=== PATIENT | female | born 1990 | race Caucasian/White ===

== ENCOUNTER 2016-08-15 13:01 | Inpatient (IN) | payer BC ==
[2016-08-15 16:21] LABS: CHLORIDE,CL 107 mmol/L (98-110); SODIUM,NA 136 mmol/L (136-146)
[2016-08-15] MEDS ORDERED: Water For Irrigation,Sterile 1,000 ML Container IRR PRN (17:04)
[2016-08-15] MEDS ORDERED: Sodium Chloride 0.9% 2.5 ML Syringe FLUSH PRN (17:04)
[2016-08-15] MEDS ORDERED: Carboprost Tromethamine 250 MCG/1 ML Amp IM PRN (17:04)
[2016-08-15] MEDS ORDERED: Sodium Chloride 0.9% 10 ML Syringe FLUSH PRN (17:04)
[2016-08-15] MEDS ORDERED: Methylergonovine 0.2 MG/1 ML Amp IM PRN (17:04)
[2016-08-15] MEDS ORDERED: Lidocaine 1% 50 ML MDV INJECT PRN (17:04)
[2016-08-15] MEDS ORDERED: Butorphanol 1 MG/ML SDV IVPUSH PRN (17:04)
[2016-08-15] MEDS ORDERED: Misoprostol 200 MCG Tab PO PRN (17:04)
[2016-08-15] MEDS ORDERED: Nalbuphine 10 MG/1 ML Vial IVPUSH PRN (17:04)
--- NOTE | 2016-08-15 17:08 | US ---
EXAMINATION: Transabdominal obstetric ultrasound HISTORY: Check amniotic fluid COMPARISON: None TECHNIQUE: Grayscale, color Doppler, and spectral Doppler images obtained transabdominally. FINDINGS: There is a single live intrauterine in a cephalic position. The placenta is ante rior. The amniotic fluid next is normal at 10.5 cm. The single deepest pocket measures approximately 3 cm. IMPRESSION: Single live intrauterine in a cephalic position.
[2016-08-15] MEDS ORDERED: Lactated Ringers 1,000 ML IV SCH (17:15)
[2016-08-15] MEDS ORDERED: Oxytocin/Lactated Ringers 30 UNIT/500 ML BAG IV SCH ×2 (17:15→18:30)
[2016-08-15] MEDS ORDERED: Magnesium Sulfate/Water 4 GM in Premix Bag 1 BAG IV ONE (18:22)
[2016-08-15] MEDS ORDERED: Calcium Gluconate 10% 1 GM/10 ML SDV IV PRN (18:22)
[2016-08-15] MEDS ORDERED: Labetalol 100 MG/20 ML MDV IVPUSH PRN (18:24)
[2016-08-15] MEDS ORDERED: Misoprostol 25 MCG (1/4 of 100 MCG) Tab VAG SCH (18:30)
[2016-08-15] MEDS ORDERED: Terbutaline 1 MG/ML SDV SUBCUT PRN (18:30)
[2016-08-15] MEDS: Lactated Ringers 1,000 ML IV SCH (19:40)
[2016-08-15] MEDS: Magnesium Sulfate/Water 40 GM/1,000 ML BAG IV SCH (20:06)
[2016-08-16] MEDS: Misoprostol 25 MCG (1/4 of 100 MCG) Tab VAG PRN ×2 (00:34→04:51)
[2016-08-16] MEDS ORDERED: Acetaminophen 325 MG Tab PO ONE (05:37)
[2016-08-16] MEDS: Acetaminophen 500 MG Tab PO PRN ×2 (12:21→17:53)
[2016-08-16] MEDS ORDERED: Ampicillin/Sulbactam Na 3 GM in Sodium Chloride 0.9% 100 ML IV ONE ×2 (15:30→15:45)
[2016-08-16] MEDS: Magnesium Sulfate/Water 40 GM/1,000 ML BAG IV SCH (16:33)
[2016-08-16] MEDS ORDERED: oxyCODONE 5 MG Tab PO ONE (17:50)
--- NOTE | 2016-08-16 18:36 | PCM.PREANE ---
Preanesthetic Assessment - Anesthesia/Transfusion/Family Hx Anesthesia History: No Prior Anesthesia Transfusion History: No Prior Transfusion(s) - Physical Assessment Height: 1.57 m Weight: 83.915 kg - Lab Values: Laboratory Last Values WBC 9.93 K/uL (4.0-11.0) 08/15/16 17:58 RBC 4.42 M/uL (4.30-5.90) 08/15/16 17:58 Hgb 13.5 g/dL (12.0-16.0) 08/15/16 17:58 Hct 40.7 % (36.0-46.0) 08/15/16 17:58 MCV 92.1 fL (80.0-98.0) 08/15/16 17:58 MCH 30.5 pg (27.0-32.0) 08/15/16 17:58 MCHC 33.2 g/dL (31.0-37.0) 08/15/16 17:58 RDW Std Deviation 45.5 fl (28.0-62.0) 08/15/16 17:58 RDW Coeff of Reed 14 % (11.0-15.0) 08/15/16 17:58 Plt Count 151 K/uL (150-400) 08/15/16 17:58 MPV 12.60 fL (7.40-12.00) H 08/15/16 17:58 Neut % (Auto) 72.0 % (48.0-80.0) 08/15/16 15:51 Lymph % (Auto) 20.3 % (16.0-40.0) 08/15/16 15:51 [place] % (Auto) 7.1 % (0.0-15.0) 08/15/16 15:51 Eos % (Auto) 0.5 % (0.0-7.0) 08/15/16 15:51 Baso % (Auto) 0.1 % (0.0-1.5) 08/15/16 15:51 Neut # (Auto) 6.2 K/uL (1.4-5.7) H 08/15/16 15:51 Lymph # (Auto) 1.7 K/uL (0.6-2.4) 08/15/16 15:51 [place] # (Auto) 0.6 K/uL (0.0-0.8) 08/15/16 15:51 Eos # (Auto) 0.0 K/uL (0.0-0.7) 08/15/16 15:51 Baso # (Auto) 0.0 K/uL (0.0-0.1) 08/15/16 15:51 Nucleated RBC % 0.0 /100WBC 08/15/16 17:58 Nucleated RBCs # 0 K/uL 08/15/16 17:58 Sodium 136 mmol/L (136-146) 08/15/16 15:51 Potassium 4.1 mmol/L (3.5-5.1) 08/15/16 15:51 Chloride 107 mmol/L (98-110) 08/15/16 15:51 Carbon Dioxide 19 mmol/L (21-31) L 08/15/16 15:51 BUN 9 mg/dL (6.0-23.0) 08/15/16 15:51 Creatinine 0.6 mg/dL (0.6-1.5) 08/15/16 15:51 Est Cr Clr Drug Dosing 113.36 mL/min 08/15/16 15:51 Estimated GFR (MDRD) > 60.0 ml/min 08/15/16 15:51 Glucose 74 mg/dL (60-110) 08/15/16 15:51 Uric Acid 3.8 mg/dL (2.1-6.2) 08/15/16 15:51 Calcium 9.3 mg/dL (8.8-10.8) 08/15/16 15:51 Magnesium 4.6 mEq/L (1.5-2.3) H 08/16/16 12:18 Total Bilirubin 0.2 mg/dL (0.1-1.5) 08/15/16 15:51 AST 15 IU/L (5-40) 08/15/16 15:51 ALT 9 IU/L (8-54) 08/15/16 15:51 Alkaline Phosphatase 201 (40-150) H 08/15/16 15:51 Total Protein 6.2 g/dL (6.0-8.0) 08/15/16 15:51 Albumin 3.4 g/dL (3.5-5.0) L 08/15/16 15:51 Globulin 2.8 g/dL (2.0-3.5) 08/15/16 15:51 Albumin/Globulin Ratio 1.2 (1.3-2.8) L 08/15/16 15:51 Urine Color YELLOW 08/15/16 13:45 Urine Appearance SLT CLOUDY 08/15/16 13:45 Urine pH 7.5 (5.0-8.0) 08/15/16 13:45 Ur Specific [place] 1.015 (1.001-1.035) 08/15/16 13:45 Urine Protein TRACE mg/dL (NEGATIVE) 08/15/16 13:45 Urine Glucose (UA) NEGATIVE mg/dL (NEGATIVE) 08/15/16 13:45 Urine Ketones NEGATIVE mg/dL (NEGATIVE) 08/15/16 13:45 Urine Occult Blood NEGATIVE (NEGATIVE) 08/15/16 13:45 Urine Nitrite NEGATIVE (NEGATIVE) 08/15/16 13:45 Urine Bilirubin NEGATIVE (NEGATIVE) 08/15/16 13:45 Urine Urobilinogen 0.2 EU/dL (<2.0) 08/15/16 13:45 Ur Leukocyte Esterase NEGATIVE (NEGATIVE) 08/15/16 13:45 Membrane Rupture POSITIVE 08/15/16 16:10 Blood Type O POSITIVE 08/15/16 17:58 Antibody Screen NEGATIVE 08/15/16 17:58 - Allergies Allergies/Adverse Reactions: Allergies Allergy/AdvReac Type Severity Reaction Status Date / Time No Known Allergies Allergy Verified 08/15/16 13:23 PreAnesthesia Questionnaire - Past Health History Medical/Surgical History: Denies Medical/Surgical History - CURRENT (IN HOUSE) MEDS Current Meds: Current Medications Acetaminophen (Tylenol Extra Strength) 1,000 mg PO Q4H PRN PRN Reason: Pain Last Admin: 08/16/16 17:53 Dose: 1,000 mg Butorphanol Tartrate (Stadol) 1 mg IVPUSH ASDIRECTED PRN PRN Reason: Pain Last Admin: 08/16/16 15:30 Dose: 1 mg Calcium Gluconate (Calcium Gluconate) 1 gm IV ASDIRECTED PRN PRN Reason: respiratory distress Carboprost Tromethamine (Hemabate Ds) 250 mcg IM ASDIRECTED PRN PRN Reason: Post Hemorrhage Magnesium Sulfate (Magnesium Sulfate 40 Gm In Water 1000 Ml) 40 gm in 1,000 mls @ 50 mls/hr IV ASDIRECTED ALBA; 2 GM/HR PRN Reason: Protocol Last Admin: 08/16/16 16:33 Dose: 2 gm/hr, 50 mls/hr Oxytocin/Lactated Ringer's (Pitocin In Lr 30 Units/500 Ml) 30 unit in 500 mls @ 2 mls/hr IV TITRATE ALBA; 2 MUNITS/MIN PRN Reason: Protocol Last Titration: 08/16/16 17:10 Dose: 10 munits/min, 10 mls/hr Ampicillin Sodium/Sulbactam (Sodium 1.5 gm/ Sodium Chloride) 50 mls @ 150 mls/ hr IV Q6H ALBA Labetalol HCl (Normodyne) 20 mg IVPUSH Q10M PRN; Protocol PRN Reason: Hypertension Lidocaine HCl (Xylocaine 1%) 50 ml INJECT .ONCE PRN PRN Reason: Laceration repair Methylergonovine Maleate (Methergine) 0.2 mg IM ASDIRECTED PRN PRN Reason: Post Hemorrhage Misoprostol (Cytotec) 200 mcg PO .ONCE PRN PRN Reason: Post Hemorrhage Misoprostol (Cytotec) 25 mcg VAG .ONCE ALBA Last Admin: 08/15/16 20:24 Dose: 25 mcg Misoprostol (Cytotec) 25 mcg VAG Q4H PRN PRN Reason: Cervical Ripening Stop: 08/16/16 22:31 Last Admin: 08/16/16 04:51 Dose: 25 mcg Nalbuphine HCl (Nubain) 10 mg IVPUSH ASDIRECTED PRN PRN Reason: Pain (severe 7-10) Stop: 08/17/16 17:05 Sodium Chloride (Saline Flush) 10 ml FLUSH ASDIRECTED PRN PRN Reason: Keep Vein Open Sodium Chloride (Saline Flush) 2.5 ml FLUSH ASDIRECTED PRN PRN Reason: Keep Vein Open Sterile Water (Sterile Water For Irrigation) 1,000 ml IRR ASDIRECTED PRN PRN Reason: delivery Terbutaline Sulfate (Brethine) 0.25 mg SUBCUT ASDIRECTED PRN PRN Reason: Tacysystole Discontinued Medications Acetaminophen (Tylenol) 650 mg PO NOW ONE Stop: 08/16/16 05:38 Last Admin: 08/16/16 06:10 Dose: 650 mg Lactated Ringer's (Ringers, Lactated) 1,000 mls @ 150 mls/hr IV ASDIRECTED ALBA Oxytocin/Lactated Ringer's (Pitocin In Lr 30 Units/500 Ml) 30 unit in 500 mls @ 250 mls/hr IV TITRATE ALBA; 250 MUNITS/MIN PRN Reason: Protocol Stop: 08/15/16 19:14 Magnesium Sulfate 4 gm/ Premix 100 mls @ 300 mls/hr IV .BOLUS ONE Stop: 08/15/16 18:41 Last Admin: 08/15/16 19:46 Dose: 300 mls/hr Ampicillin Sodium/Sulbactam (Sodium 1.5 gm/ Sodium Chloride) 50 mls @ 200 mls/ hr IV Q6H ALBA Ampicillin Sodium/Sulbactam (Sodium 3 gm/ Sodium Chloride) 100 mls @ 200 mls/ hr IV ONETIME ONE Stop: 08/16/16 15:59 Ampicillin Sodium/Sulbactam (Sodium 3 gm/ Sodium Chloride) 100 mls @ 200 mls/ hr IV ONETIME ONE Stop: 08/16/16 16:14 Last Admin: 08/16/16 16:34 Dose: 200 mls/hr Oxycodone HCl (Oxycodone) 5 mg PO ONETIME ONE Stop: 08/16/16 17:51 Last Admin: 08/16/16 17:54 Dose: 5 mg - Free Text/Narrative Note: Labor Analgesia/Epidural Procedure start date: time: Attending provider aware Chart reviewed Permit signed Labs reviewed VS/ FHR reviewed Pt identified/ID band Pt assessed Risks/Benefits discussed and accepted Monitors in place (BP, HR, SPO2) Patient, Site, Procedure Verification, Pause. Fluid bolus infused (fluid type and amount): Position: Sitting L lateral Other: Prep: Betadine X 3 Alcohol X 3 Other: Sterile Drape Intradermal Wheal: 3 ml 1% Lidocaine Other: Regional placement level: L1-2 L2-3 L3-4 L4-5 Caudal Other : Needle: 17 g Tuohy Other: Approach: Midline Paramedian, Technique: MARISSA glass syringe MARISSA plastic syringe Other: Sterile water Air MARISSA needle depth: cm Paresthesia: None R Transient L Transient R Persistent L Persistent Fluid Obtained: None CSF Heme Catheter insertion time: Catheter depth at skin: cm Test Dose Time: RX: ml 1.5% lidocaine with 1:200,000 epi Other: Response: Negative Other: Loading dose Time: RX: Pt position: Continuous infusion Start Time: RX: Continuous infusion rate: COOKY PACKER bolus option: Lockout dose per hour: Pt response Post procedure pain level: Level achieved: VS and FHR monitored in unit post placement (See OB traceview for documentation. ) Procedure end date: time:
[2016-08-16] MEDS ORDERED: fentaNYL 100 MCG/2 ML SDV ONE (18:50)
[2016-08-16] MEDS ORDERED: Ropivacaine 0.2% 2 MG/ML 20 ML SDV ONE (18:51)
[2016-08-16] MEDS ORDERED: Lactated Ringers 1,000 ML IV ONE (19:43)
--- NOTE | 2016-08-16 19:49 | PCM.PREANE ---
Preanesthetic Assessment - Anesthesia/Transfusion/Family Hx Anesthesia History: No Prior Anesthesia Family History of Anesthesia Reaction: No Transfusion History: No Prior Transfusion(s) - Review of Systems General: No Symptoms Pulmonary: No Symptoms Cardiovascular: No Symptoms Gastrointestinal: No symptoms Neurological: Headache Other: Reports: None - Physical Assessment NPO Status Date: 08/16/16 NPO Status Time: 19:47 (cl liquids now) Height: 1.57 m Weight: 83.915 kg ASA Class: 3 Mental Status: Alert & Oriented x3 Airway Class: Mallampati = 2 Dentition: Reports: Normal Dentition Thyro-Mental Finger Breadths: 3 Mouth Opening Finger Breadths: 3 ROM/Head Extension: Full Lungs: Clear to auscultation, Normal respiratory effort Cardiovascular: Regular Rate, Regular Rhythm - Lab Values: Laboratory Last Values WBC 9.93 K/uL (4.0-11.0) 08/15/16 17:58 RBC 4.42 M/uL (4.30-5.90) 08/15/16 17:58 Hgb 13.5 g/dL (12.0-16.0) 08/15/16 17:58 Hct 40.7 % (36.0-46.0) 08/15/16 17:58 MCV 92.1 fL (80.0-98.0) 08/15/16 17:58 MCH 30.5 pg (27.0-32.0) 08/15/16 17:58 MCHC 33.2 g/dL (31.0-37.0) 08/15/16 17:58 RDW Std Deviation 45.5 fl (28.0-62.0) 08/15/16 17:58 RDW Coeff of Reed 14 % (11.0-15.0) 08/15/16 17:58 Plt Count 151 K/uL (150-400) 08/15/16 17:58 MPV 12.60 fL (7.40-12.00) H 08/15/16 17:58 Neut % (Auto) 72.0 % (48.0-80.0) 08/15/16 15:51 Lymph % (Auto) 20.3 % (16.0-40.0) 08/15/16 15:51 [place] % (Auto) 7.1 % (0.0-15.0) 08/15/16 15:51 Eos % (Auto) 0.5 % (0.0-7.0) 08/15/16 15:51 Baso % (Auto) 0.1 % (0.0-1.5) 08/15/16 15:51 Neut # (Auto) 6.2 K/uL (1.4-5.7) H 08/15/16 15:51 Lymph # (Auto) 1.7 K/uL (0.6-2.4) 08/15/16 15:51 [place] # (Auto) 0.6 K/uL (0.0-0.8) 08/15/16 15:51 Eos # (Auto) 0.0 K/uL (0.0-0.7) 08/15/16 15:51 Baso # (Auto) 0.0 K/uL (0.0-0.1) 08/15/16 15:51 Nucleated RBC % 0.0 /100WBC 08/15/16 17:58 Nucleated RBCs # 0 K/uL 08/15/16 17:58 Sodium 136 mmol/L (136-146) 08/15/16 15:51 Potassium 4.1 mmol/L (3.5-5.1) 08/15/16 15:51 Chloride 107 mmol/L (98-110) 08/15/16 15:51 Carbon Dioxide 19 mmol/L (21-31) L 08/15/16 15:51 BUN 9 mg/dL (6.0-23.0) 08/15/16 15:51 Creatinine 0.6 mg/dL (0.6-1.5) 08/15/16 15:51 Est Cr Clr Drug Dosing 113.36 mL/min 08/15/16 15:51 Estimated GFR (MDRD) > 60.0 ml/min 08/15/16 15:51 Glucose 74 mg/dL (60-110) 08/15/16 15:51 Uric Acid 3.8 mg/dL (2.1-6.2) 08/15/16 15:51 Calcium 9.3 mg/dL (8.8-10.8) 08/15/16 15:51 Magnesium 4.3 mEq/L (1.5-2.3) H 08/16/16 17:54 Total Bilirubin 0.2 mg/dL (0.1-1.5) 08/15/16 15:51 AST 15 IU/L (5-40) 08/15/16 15:51 ALT 9 IU/L (8-54) 08/15/16 15:51 Alkaline Phosphatase 201 (40-150) H 08/15/16 15:51 Total Protein 6.2 g/dL (6.0-8.0) 08/15/16 15:51 Albumin 3.4 g/dL (3.5-5.0) L 08/15/16 15:51 Globulin 2.8 g/dL (2.0-3.5) 08/15/16 15:51 Albumin/Globulin Ratio 1.2 (1.3-2.8) L 08/15/16 15:51 Urine Color YELLOW 08/15/16 13:45 Urine Appearance SLT CLOUDY 08/15/16 13:45 Urine pH 7.5 (5.0-8.0) 08/15/16 13:45 Ur Specific [place] 1.015 (1.001-1.035) 08/15/16 13:45 Urine Protein TRACE mg/dL (NEGATIVE) 08/15/16 13:45 Urine Glucose (UA) NEGATIVE mg/dL (NEGATIVE) 08/15/16 13:45 Urine Ketones NEGATIVE mg/dL (NEGATIVE) 08/15/16 13:45 Urine Occult Blood NEGATIVE (NEGATIVE) 08/15/16 13:45 Urine Nitrite NEGATIVE (NEGATIVE) 08/15/16 13:45 Urine Bilirubin NEGATIVE (NEGATIVE) 08/15/16 13:45 Urine Urobilinogen 0.2 EU/dL (<2.0) 08/15/16 13:45 Ur Leukocyte Esterase NEGATIVE (NEGATIVE) 08/15/16 13:45 Membrane Rupture POSITIVE 08/15/16 16:10 Blood Type O POSITIVE 08/15/16 17:58 Antibody Screen NEGATIVE 08/15/16 17:58 - Allergies Allergies/Adverse Reactions: Allergies Allergy/AdvReac Type Severity Reaction Status Date / Time No Known Allergies Allergy Verified 08/15/16 13:23 - Blood Blood Available: Yes Product(s) Available: PRBC - Acknowledgements Anesthesia Type Planned: Epidural Pt an Appropriate Candidate for the Planned Anesthesia: Yes Alternatives and Risks of Anesthesia Discussed w Pt/Guardian: Yes Pt/Guardian Understands and Agrees with Anesthesia Plan: Yes PreAnesthesia Questionnaire - Past Health History Medical/Surgical History: Denies Medical/Surgical History Other Cardiovascular History: Preeclampsia. Pt induced for labor and is on magnesium drip. Denies previous history of hypertension - CURRENT (IN HOUSE) MEDS Current Meds: Current Medications Acetaminophen (Tylenol Extra Strength) 1,000 mg PO Q4H PRN PRN Reason: Pain Last Admin: 08/16/16 17:53 Dose: 1,000 mg Butorphanol Tartrate (Stadol) 1 mg IVPUSH ASDIRECTED PRN PRN Reason: Pain Last Admin: 08/16/16 15:30 Dose: 1 mg Calcium Gluconate (Calcium Gluconate) 1 gm IV ASDIRECTED PRN PRN Reason: respiratory distress Carboprost Tromethamine (Hemabate Ds) 250 mcg IM ASDIRECTED PRN PRN Reason: Post Hemorrhage Magnesium Sulfate (Magnesium Sulfate 40 Gm In Water 1000 Ml) 40 gm in 1,000 mls @ 50 mls/hr IV ASDIRECTED ALBA; 2 GM/HR PRN Reason: Protocol Last Admin: 08/16/16 16:33 Dose: 2 gm/hr, 50 mls/hr Oxytocin/Lactated Ringer's (Pitocin In Lr 30 Units/500 Ml) 30 unit in 500 mls @ 2 mls/hr IV TITRATE ALBA; 2 MUNITS/MIN PRN Reason: Protocol Last Titration: 08/16/16 17:46 Dose: 14 munits/min, 14 mls/hr Ampicillin Sodium/Sulbactam (Sodium 1.5 gm/ Sodium Chloride) 50 mls @ 150 mls/ hr IV Q6H ALBA Lactated Ringer's (Ringers, Lactated) 1,000 mls @ 10 mls/hr IV ASDIRECTED ALBA Lactated Ringer's (Ringers, Lactated) 1,000 mls @ 999 mls/hr IV .BOLUS ONE Stop: 08/16/16 20:43 Labetalol HCl (Normodyne) 20 mg IVPUSH Q10M PRN; Protocol PRN Reason: Hypertension Lidocaine HCl (Xylocaine 1%) 50 ml INJECT .ONCE PRN PRN Reason: Laceration repair Methylergonovine Maleate (Methergine) 0.2 mg IM ASDIRECTED PRN PRN Reason: Post Hemorrhage Misoprostol (Cytotec) 200 mcg PO .ONCE PRN PRN Reason: Post Hemorrhage Misoprostol (Cytotec) 25 mcg VAG .ONCE ALBA Last Admin: 08/15/16 20:24 Dose: 25 mcg Misoprostol (Cytotec) 25 mcg VAG Q4H PRN PRN Reason: Cervical Ripening Stop: 08/16/16 22:31 Last Admin: 08/16/16 04:51 Dose: 25 mcg Nalbuphine HCl (Nubain) 10 mg IVPUSH ASDIRECTED PRN PRN Reason: Pain (severe 7-10) Stop: 08/17/16 17:05 Sodium Chloride (Saline Flush) 10 ml FLUSH ASDIRECTED PRN PRN Reason: Keep Vein Open Sodium Chloride (Saline Flush) 2.5 ml FLUSH ASDIRECTED PRN PRN Reason: Keep Vein Open Sterile Water (Sterile Water For Irrigation) 1,000 ml IRR ASDIRECTED PRN PRN Reason: delivery Terbutaline Sulfate (Brethine) 0.25 mg SUBCUT ASDIRECTED PRN PRN Reason: Tacysystole Discontinued Medications Acetaminophen (Tylenol) 650 mg PO NOW ONE Stop: 08/16/16 05:38 Last Admin: 08/16/16 06:10 Dose: 650 mg Fentanyl (Sublimaze) Confirm Administered Dose 100 mcg .ROUTE .STK-MED ONE Stop: 08/16/16 18:51 Lactated Ringer's (Ringers, Lactated) 1,000 mls @ 150 mls/hr IV ASDIRECTED [facility] Oxytocin/Lactated Ringer's (Pitocin In Lr 30 Units/500 Ml) 30 unit in 500 mls @ 250 mls/hr IV TITRATE ALBA; 250 MUNITS/MIN PRN Reason: Protocol Stop: 08/15/16 19:14 Magnesium Sulfate 4 gm/ Premix 100 mls @ 300 mls/hr IV .BOLUS ONE Stop: 08/15/16 18:41 Last Admin: 08/15/16 19:46 Dose: 300 mls/hr Ampicillin Sodium/Sulbactam (Sodium 1.5 gm/ Sodium Chloride) 50 mls @ 200 mls/ hr IV Q6H ALBA Ampicillin Sodium/Sulbactam (Sodium 3 gm/ Sodium Chloride) 100 mls @ 200 mls/ hr IV ONETIME ONE Stop: 06/16/17 15:59 Ampicillin Sodium/Sulbactam (Sodium 3 gm/ Sodium Chloride) 100 mls @ 200 mls/ hr IV ONETIME ONE Stop: 08/16/16 16:14 Last Admin: 08/16/16 16:34 Dose: 200 mls/hr Ropivacaine/Fentanyl/NS (Fentanyl 2 Mcg-Ropiv 0.2%-Ns) Confirm Administered Dose 100 mls @ as directed .ROUTE .STK-MED ONE Stop: 08/16/16 18:51 Oxycodone HCl (Oxycodone) 5 mg PO ONETIME ONE Stop: 08/16/16 17:51 Last Admin: 08/16/16 17:54 Dose: 5 mg Ropivacaine (Naropin 0.2%) Confirm Administered Dose 20 ml .ROUTE .STK-MED ONE Stop: 08/16/16 18:52 - Free Text/Narrative Note: Labor Analgesia/Epidural Procedure start date: 08/16/16 time: 1899 Attending provider aware Chart reviewed Permit signed Labs reviewed VS/ FHR reviewed Pt identified/ID band Pt assessed Risks/Benefits discussed and accepted Monitors in place (BP, HR, SPO2) Patient, Site, Procedure Verification, Pause. Pain = "8/10" Fluid bolus infused (fluid type and amount): 500 ml LR (Pt preeclamptic on fluid restrictions) Position: Sitting @ 190 Prep: Betadine X 3 Sterile Drape Intradermal Wheal: 3 ml 1% Lidocaine Regional placement level: L3-4 Needle: 17 g Tuohy Approach: Midline Technique: MARISSA glass syringe w 3 ml Sterile water MARISSA needle depth: 6 cm Paresthesia: None Fluid Obtained: None Catheter insertion time: 1910 Catheter depth at skin: 20 cm Test Dose Time:1911 RX: 3 ml 1.5% lidocaine with 1:200,000 epi Response: Negative Loading dose Time: 6458-8979 RX: 100 mcg fentanyl followed by 10 ml 0.2% ropivacaine in 2 ml increments over 13 minutes Pt position: semi fowlers with IKER Continuous infusion Start Time: 1929 RX: 100 ml 0.2% ropivacaine with 2 mcg/ml fentanyl Continuous infusion rate: 6 ml/hr EXTERNAL RELATIONS DIRECTOR bolus option: 5 ml every 15 minutes \\ Pt response Post procedure pain level: "0/10" VS and FHR monitored in unit post placement (See OB traceview for documentation. ) Pt pre-eclamptic. Denies other health problems. Minimal fluid bolus. On magnesium infusion. Loading dose given slowly to avoid large hemodynamic changes. Pt tolerated well with no significant changes in BP. FHR remains WNL during placement. Procedure end date: 08/16/16 time: 2005
[2016-08-16] MEDS ORDERED: Ampicillin/Sulbactam Na 1.5 GM in Sodium Chloride 0.9% 50 ML IV SCH (21:30)
[2016-08-17] MEDS ORDERED: Witch Hazel Medicated Pads 40/Jar TOP PRN (02:55)
[2016-08-17] MEDS ORDERED: Simethicone 80 MG Tab.Chew PO PRN (02:55)
[2016-08-17] MEDS ORDERED: Ondansetron 4 MG/2 ML SDV IVPUSH PRN (02:55)
[2016-08-17] MEDS ORDERED: Bisacodyl 10 MG Supp RECTAL PRN (02:55)
[2016-08-17] MEDS ORDERED: Benzocaine/Menthol 20%-0.5% Spray 78 GM Cannister TOP PRN (02:55)
[2016-08-17] MEDS ORDERED: Aluminum Hydroxide/Magnesium Hydroxide/Simethicone Susp 30 ML Cup PO PRN (02:55)
[2016-08-17] MEDS ORDERED: oxyCODONE 5 MG Tab PO PRN (02:55)
[2016-08-17] MEDS ORDERED: Ibuprofen 400 MG Tab PO PRN (02:55)
[2016-08-17] MEDS ORDERED: Lanolin 100% Cream 7 GM Tube TOP PRN (02:55)
[2016-08-17] MEDS ORDERED: Docusate Sodium 100 MG Cap PO PRN (02:55)
[2016-08-17] MEDS ORDERED: Acetaminophen 500 MG Tab PO PRN ×2 (02:55)
[2016-08-17] MEDS: Ampicillin/Sulbactam Na 1.5 GM in Sodium Chloride 0.9% 50 ML IV SCH ×5 (03:49→21:23)
--- NOTE | 2016-08-17 04:08 | OR ---
SURGEON: Geetha Orosco M.D. DATE OF PROCEDURE: 08/17/2016 PREOPERATIVE DIAGNOSES: 1. A 40 and 3 weeks intrauterine . 2. Preeclampsia. 3. Premature prolonged rupture of membranes. POSTOPERATIVE DIAGNOSES: 1. A 40 and 3 weeks intrauterine . 2. Preeclampsia. 3. Premature prolonged rupture of membranes. PROCEDURE PERFORMED: Spontaneous vaginal delivery, second-degree midline episiotomy repaired. ESTIMATED BLOOD LOSS: 400 mL. ANESTHESIA: Epidural. COMPLICATIONS: None known. FINDINGS: Viable female score 8 at 1 minute, 9 at 5 minutes. Weight of 3180 g. Manual extraction of placenta and 3-vessel cord. DISPOSITION: to nursery, mom in magnesium recovery. PROCEDURE IN DETAIL: Lashawn is a 26-year-old G2, P0-0-1-0 at 40 and 2 weeks gestational age when she presented on the evening of 08/15/2016 with leaking of fluid for possibly 24 hours. The patient was found to have spontaneous rupture of membranes. Clear fluid had been returned. She was admitted. Routine labs were drawn as well as while we monitored her blood pressure, it was noted to be quite elevated, therefore, PIH labs were drawn. She was found to have proteinuria and mildly depressed platelets at 129,000. Therefore, she was admitted and diagnosed with preeclampsia and initiated on magnesium prophylaxis, and then also initiated on Cytotec cervical ripening. heart tones are category 1. The patient responded slowly to the Cytotec. She received 3 doses. By the following morning, she was found to be 2 cm, 60% effaced, -3 station. She was initiated on Pitocin, responded to this slowly throughout the day. She was continued on magnesium prophylaxis. Her blood pressures were stable overall. In the afternoon, she became increasingly uncomfortable and underwent regional anesthesia from epidural, she became more comfortable and continued to progress more rapidly thereafter. Shortly after 11:00 p.m., she was found to be 5 cm, 90% effaced, 0 station. Blood pressure 120/92, continue with Pitocin and IUPC had been placed. Given her extensive rupture of membranes, she was initiated on Unasyn prophylaxis as well. The patient progressed fairly rapidly to complete thereafter and began pushing efforts. She pushed for approximately 2 hours. At that time, she was found to be +3 station. I was called for delivery. Upon my arrival, the patient was placed modified dorsal spine position, prepped and draped in the usual aseptic manner. Continued pushing efforts. It was noted that the introitus was extremely tight for the patient and in order to help facilitate the delivery as she was fatigued significantly and help decrease secondary lacerations to the labia and alannah-urethra, a second-degree midline episiotomy was performed. The patient was able to push past the perineum at this point and deliver the 's head atraumatically, spontaneously followed by anterior shoulder, posterior shoulder, and remainder of the body without difficulty. The 's oropharynx and nares bulb suctioned. Cord clamped x2 and cut. Infant was handed off to her mother with attending nursing staff at her side. Cord arterial, cord venous, and cord blood sampling was obtained. Light suprapubic pressure was applied, while the placenta was attempted to be delivered, the cord was very thin and friable and easily avulsed, therefore, the placenta was extracted manually. It was fairly adherent to the uterine fundus. However, with gentle manipulation was able to be completely delivered. It will be sent to Pathology for further analysis. Fundal massage was now vigorously pursued while 30 units of Pitocin was delivered in 500 mL of IV fluid. The uterus did involute. Upon inspection of cervix, vaginal sidewalls, and perineum, there was a second-degree midline episiotomy, which was repaired using 3-0 Vicryl in the usual fashion. At this juncture, uterus remained firm. Hemostasis remained evident. Sponge count and needle count was correct. The patient will remain on magnesium recovery while infant goes to nursery. The patient will also remain on Unasyn prophylaxis. She has remained afebrile. FRANTZ / SERGIO /[id number]
[2016-08-17] MEDS: Ibuprofen 800 MG Tab PO PRN ×2 (10:28→20:05)
--- NOTE | 2016-08-17 11:01 | PCM.PNPP ---
- General Info Date of Service: 08/17/16 Functional Status: Reports: pain controlled, tolerating diet - Review of Systems General: Denies: Fever, Weakness Cardiovascular: Reports: Lightheadedness (was light headed this morning when attempted ambulation to the bathroom--nursing staff re directed her to bed). Denies: Chest Pain, Palpitations Gastrointestinal: Denies: Abdominal pain, Nausea, Vomiting Genitourinary: Denies: flank pain Neurological: Denies: Headache Psychiatric: Denies: confusion - General Info Date of Service: 08/17/16 - Patient Data Vital Signs - most recent: Last Vital Signs Temp 36.4 C 08/17/16 09:00 Pulse 94 08/17/16 09:00 Resp 16 08/17/16 09:00 BP 124/75 08/17/16 09:00 Pulse Ox 96 08/17/16 09:00 Weight - most recent: 83.915 kg I&O - last 24 hours: Intake & Output 08/16/16 08/17/16 08/17/16 22:59 06:59 14:59 Intake Total 70 Output Total 0 Balance 70 Lab Results - last 24 hrs: Laboratory Results - last 24 hr 08/16/16 08/16/16 08/17/16 Range/Units 12:18 17:54 00:40 Magnesium 4.6 H 4.3 H 5.4 H (1.5-2.3) mEq/L Med Orders - Current: Current Medications Acetaminophen (Tylenol Extra Strength) 1,000 mg PO Q4H PRN PRN Reason: Pain Last Admin: 08/16/16 17:53 Dose: 1,000 mg Acetaminophen (Tylenol Extra Strength) 500 mg PO Q4H PRN PRN Reason: Pain Acetaminophen (Tylenol Extra Strength) 1,000 mg PO Q4H PRN PRN Reason: Pain Al Hydroxide/Mg Hydroxide (Mag-Al Plus) 30 ml PO Q8H PRN PRN Reason: Heartburn Benzocaine/Menthol (Dermoplast Pain Relief 20%-0.5% [place]) 78 gm TOP ASDIRECTED PRN PRN Reason: Perineal Comfort Measure Last Admin: 08/17/16 06:24 Dose: 1 spray Bisacodyl (Dulcolax) 10 mg RECTAL .ONCE PRN PRN Reason: Constipation Calcium Gluconate (Calcium Gluconate) 1 gm IV ASDIRECTED PRN PRN Reason: respiratory distress Carboprost Tromethamine (Hemabate Ds) 250 mcg IM ASDIRECTED PRN PRN Reason: Post Hemorrhage Docusate Sodium (Colace) 100 mg PO BID PRN PRN Reason: Constipation Emollient Ointment (Lansinoh Hpa) 0 gm TOP ASDIRECTED PRN PRN Reason: Sore Nipples Magnesium Sulfate (Magnesium Sulfate 40 Gm In Water 1000 Ml) 40 gm in 1,000 mls @ 25 mls/hr IV ASDIRECTED ALBA; 1 GM/HR PRN Reason: Protocol Stop: 08/17/16 23:59 Last Titration: 08/17/16 02:30 Dose: 1 gm/hr, 25 mls/hr Oxytocin/Lactated Ringer's (Pitocin In Lr 30 Units/500 Ml) 30 unit in 500 mls @ 2 mls/hr IV TITRATE ALBA; 2 MUNITS/MIN PRN Reason: Protocol Last Titration: 08/17/16 02:23 Dose: 500 munits/min, 500 mls/hr Ampicillin Sodium/Sulbactam (Sodium 1.5 gm/ Sodium Chloride) 50 mls @ 150 mls/ hr IV Q6H ALBA Last Admin: 08/17/16 10:22 Dose: 150 mls/hr Lactated Ringer's (Ringers, Lactated) 1,000 mls @ 10 mls/hr IV ASDIRECTED ALBA Last Infusion: 08/16/16 19:20 Dose: 10 mls/hr Ibuprofen (Motrin) 400 mg PO Q4H PRN PRN Reason: Pain Ibuprofen (Motrin) 800 mg PO Q6H PRN PRN Reason: Pain Last Admin: 08/17/16 10:28 Dose: 800 mg Labetalol HCl (Normodyne) 20 mg IVPUSH Q10M PRN; Protocol PRN Reason: Hypertension Methylergonovine Maleate (Methergine) 0.2 mg IM ASDIRECTED PRN PRN Reason: Post Hemorrhage Ondansetron HCl (Zofran) 4 mg IVPUSH Q6H PRN PRN Reason: Nausea/Vomiting Oxycodone HCl (Oxycodone) 5 mg PO Q2H PRN PRN Reason: Pain Simethicone (Simethicone) 80 mg PO Q4H PRN PRN Reason: Gas Sodium Chloride (Saline Flush) 10 ml FLUSH ASDIRECTED PRN PRN Reason: Keep Vein Open Sodium Chloride (Saline Flush) 2.5 ml FLUSH ASDIRECTED PRN PRN Reason: Keep Vein Open Witch Mony (Tucks) 1 pad TOP ASDIRECTED PRN PRN Reason: comfort care Discontinued Medications Acetaminophen (Tylenol) 650 mg PO NOW ONE Stop: 08/16/16 05:38 Last Admin: 08/16/16 06:10 Dose: 650 mg Butorphanol Tartrate (Stadol) 1 mg IVPUSH ASDIRECTED PRN PRN Reason: Pain Last Admin: 08/16/16 15:30 Dose: 1 mg Fentanyl (Sublimaze) Confirm Administered Dose 100 mcg .ROUTE .STK-MED ONE Stop: 08/16/16 18:51 Lactated Ringer's (Ringers, Lactated) 1,000 mls @ 150 mls/hr IV ASDIRECTED ALBA Oxytocin/Lactated Ringer's (Pitocin In Lr 30 Units/500 Ml) 30 unit in 500 mls @ 250 mls/hr IV TITRATE ALBA; 250 MUNITS/MIN PRN Reason: Protocol Stop: 08/15/16 19:14 Magnesium Sulfate 4 gm/ Premix 100 mls @ 300 mls/hr IV .BOLUS ONE Stop: 08/15/16 18:41 Last Admin: 08/15/16 19:46 Dose: 300 mls/hr Ampicillin Sodium/Sulbactam (Sodium 1.5 gm/ Sodium Chloride) 50 mls @ 200 mls/ hr IV Q6H ALBA Ampicillin Sodium/Sulbactam (Sodium 3 gm/ Sodium Chloride) 100 mls @ 200 mls/ hr IV ONETIME ONE Stop: 08/16/16 15:59 Ampicillin Sodium/Sulbactam (Sodium 3 gm/ Sodium Chloride) 100 mls @ 200 mls/ hr IV ONETIME ONE Stop: 08/16/16 16:14 Last Admin: 08/16/16 16:34 Dose: 200 mls/hr Ropivacaine/Fentanyl/NS (Fentanyl 2 Mcg-Ropiv 0.2%-Ns) Confirm Administered Dose 100 mls @ as directed .ROUTE .STK-MED ONE Stop: 08/16/16 18:51 Lactated Ringer's (Ringers, Lactated) 1,000 mls @ 999 mls/hr IV .BOLUS ONE Stop: 08/16/16 20:43 Lidocaine HCl (Xylocaine 1%) 50 ml INJECT .ONCE PRN PRN Reason: Laceration repair Misoprostol (Cytotec) 200 mcg PO .ONCE PRN PRN Reason: Post Hemorrhage Misoprostol (Cytotec) 25 mcg VAG .ONCE ALBA Last Admin: 08/15/16 20:24 Dose: 25 mcg Misoprostol (Cytotec) 25 mcg VAG Q4H PRN PRN Reason: Cervical Ripening Stop: 08/16/16 22:31 Last Admin: 08/16/16 04:51 Dose: 25 mcg Nalbuphine HCl (Nubain) 10 mg IVPUSH ASDIRECTED PRN PRN Reason: Pain (severe 7-10) Stop: 08/17/16 17:05 Oxycodone HCl (Oxycodone) 5 mg PO ONETIME ONE Stop: 08/16/16 17:51 Last Admin: 08/16/16 17:54 Dose: 5 mg Ropivacaine (Naropin 0.2%) Confirm Administered Dose 20 ml .ROUTE .STK-MED ONE Stop: 08/16/16 18:52 Sterile Water (Sterile Water For Irrigation) 1,000 ml IRR ASDIRECTED PRN PRN Reason: delivery Terbutaline Sulfate (Brethine) 0.25 mg SUBCUT ASDIRECTED PRN PRN Reason: Tacysystole - Infant Interaction Support Person: - Recovery Exam Fundal Tone: Firm Fundal Level: 2 Fingerbreadths Below Umbilicus Fundal Placement: Midline Lochia Amount: Small Lochia Color: Rubra/Red Perineum Description: Intact, Minimal Bruising/Swelling Episiotomy/Laceration: Approximated Bladder Status: Nonpalpable - Exam General: alert, oriented Lungs: Normal respiratory effort Cardiovascular: Regular Rate, Regular Rhythm Abdomen: bowel sounds present, soft, no tenderness. No: CVA tenderness Extremities: other (+2 DTRs bilat, no clonus). No: calf tenderness Psy/Mental Status: alert, normal affect - Problem List & Annotations (1) Vaginal delivery SNOMED Code(s): 175496103 Code(s): O80 - ENCOUNTER FOR FULL-TERM UNCOMPLICATED DELIVERY Status: Acute Current Visit: Yes (2) Preeclampsia SNOMED Code(s): 051266447 Code(s): O14.90 - UNSPECIFIED PRE-ECLAMPSIA, UNSPECIFIED TRIMESTER Status: Acute Current Visit: Yes - Problem List Review Problem List Initiated/Reviewed/Updated: Yes - My Orders Last 24 Hours: My Active Orders 08/16/16 10:30 Deep Tendon Reflexes [WOMSER] Q1H 08/16/16 11:30 Deep Tendon Reflexes [WOMSER] Q1H 08/16/16 12:01 Acetaminophen [Tylenol Extra Strength] 1,000 mg PO Q4H PRN 08/16/16 12:30 Deep Tendon Reflexes [WOMSER] Q1H 08/16/16 13:30 Deep Tendon Reflexes [WOMSER] Q1H 08/16/16 14:30 Deep Tendon Reflexes [WOMSER] Q1H 08/16/16 15:30 Deep Tendon Reflexes [WOMSER] Q1 08/16/16 16:30 Deep Tendon Reflexes [WOMSER] Q1H 08/16/16 17:30 Deep Tendon Reflexes [WOMSER] Q1H 08/16/16 21:45 Ampicillin/Sulbactam Na [Unasyn] 1.5 gm Sodium Chloride 0.9% [Normal Saline] 50 ml IV Q6H 08/17/16 02:55 May Shower [RC] ASDIRECTED Up ad Vannesa [RC] ASDIRECTED Vital Signs [RC] PER UNIT ROUTINE Acetaminophen [Tylenol Extra Strength] 1,000 mg PO Q4H PRN Acetaminophen [Tylenol Extra Strength] 500 mg PO Q4H PRN Alum Hydrox/Mag Hydrox/Simeth [Mag-Al Plus] 30 ml PO Q8H PRN Benzocaine/Menthol [Dermoplast Pain Relief 20%-0.5% [place]] 78 gm TOP ASDIRECTED PRN Bisacodyl [Dulcolax] 10 mg RECTAL .ONCE PRN Docusate Sodium [Colace] 100 mg PO BID PRN Ibuprofen [Motrin] 400 mg PO Q4H PRN Ibuprofen [Motrin] 800 mg PO Q6H PRN Lanolin [Lansinoh HPA] See Dose Instructions TOP ASDIRECTED PRN Ondansetron [Zofran] 4 mg IVPUSH Q6H PRN Simethicone 80 mg PO Q4H PRN Witch Mony [Tucks] 1 pad TOP ASDIRECTED PRN oxyCODONE 5 mg PO Q2H PRN Assess Lochia [WOMSER] Per Unit Routine Assess Uterine Involution [WOMSER] Per Unit Routine Breast Pump [WOMSER] Per Unit Routine Ice Therapy [OM.PC] Per Unit Routine Perineal Care [OM.PC] Per Unit Routine Peripheral IV Discontinue [OM.PC] Routine Sitz Bath [OM.PC] Per Unit Routine 08/17/16 10:00 CBC WITH AUTO DIFF [HEME] Timed MAGNESIUM [CHEM] Routine 08/17/16 Breakfast Regular Diet [DIET] - Assessment Assessment:: PPD 0 status post /2nd MLE repaired Preeclampsia - Plan Plan:: Continue cares. Continue magnesium prophylaxis. Blood pressures ranging normotensive, getting up to void soon. Labs at noon.
[2016-08-17] MEDS: Acetaminophen 500 MG Tab PO PRN (12:53)
--- NOTE | 2016-08-17 13:17 | PCM48HPAN ---
Post Anesthesia Note - EVALUATION WITHIN 48HRS OF ANESTHETIC Vital Signs in Normal Range: Yes Patient Participated in Evaluation: Yes Respiratory Function Stable: Yes Airway Patent: Yes Cardiovascular Function Stable: Yes Hydration Status Stable: Yes Pain Control Satisfactory: Yes Nausea and Vomiting Control Satisfactory: Yes Mental Status Recovered: Yes
[2016-08-17] MEDS: Lactated Ringers 1,000 ML IV SCH (15:53)
[2016-08-18] MEDS: Ampicillin/Sulbactam Na 1.5 GM in Sodium Chloride 0.9% 50 ML IV SCH ×2 (04:39→22:09)
[2016-08-18] MEDS: Acetaminophen 500 MG Tab PO PRN ×2 (08:09→20:19)
--- NOTE | 2016-08-18 09:29 | PCM.PNPP ---
- General Info Date of Service: 08/18/16 Functional Status: Reports: pain controlled, tolerating diet, ambulating, urinating - Review of Systems General: Denies: Fever, Weakness Cardiovascular: Denies: Chest Pain, Palpitations, Lightheadedness Gastrointestinal: Denies: Nausea, Vomiting Genitourinary: Denies: flank pain Psychiatric: Reports: no symptoms - General Info Date of Service: 08/18/16 - Patient Data Vital Signs - most recent: Last Vital Signs Temp 37.0 C 08/18/16 08:00 Pulse 82 08/18/16 08:00 Resp 17 08/18/16 08:00 BP 132/82 08/18/16 08:00 Pulse Ox 96 08/18/16 08:00 Weight - most recent: 80.031 kg I&O - last 24 hours: Intake & Output 08/17/16 08/18/16 08/18/16 22:59 06:59 14:59 Output Total 400 Balance -400 Lab Results - last 24 hrs: Laboratory Results - last 24 hr 08/17/16 08/17/16 Range/Units 12:16 12:16 WBC 21.68 H (4.0-11.0) K/uL RBC 3.76 L (4.30-5.90) M/uL Hgb 11.6 L (12.0-16.0) g/dL Hct 34.4 L (36.0-46.0) % MCV 91.5 (80.0-98.0) fL MCH 30.9 (27.0-32.0) pg MCHC 33.7 (31.0-37.0) g/dL RDW Std Deviation 45.7 (28.0-62.0) fl RDW Coeff of Reed 14 (11.0-15.0) % Plt Count 159 (150-400) K/uL MPV 12.10 H (7.40-12.00) fL Neut % (Auto) 87.3 H (48.0-80.0) % Lymph % (Auto) 6.8 L (16.0-40.0) % [place] % (Auto) 5.7 (0.0-15.0) % Eos % (Auto) 0.1 (0.0-7.0) % Baso % (Auto) 0.1 (0.0-1.5) % Neut # (Auto) 18.9 H (1.4-5.7) K/uL Lymph # (Auto) 1.5 (0.6-2.4) K/uL [place] # (Auto) 1.2 H (0.0-0.8) K/uL Eos # (Auto) 0.0 (0.0-0.7) K/uL Baso # (Auto) 0.0 (0.0-0.1) K/uL Nucleated RBC % 0.0 /100WBC Nucleated RBCs # 0 K/uL Magnesium 4.4 H (1.5-2.3) mEq/L Med Orders - Current: Current Medications Acetaminophen (Tylenol Extra Strength) 1,000 mg PO Q4H PRN PRN Reason: Pain Last Admin: 08/18/16 08:09 Dose: 1,000 mg Acetaminophen (Tylenol Extra Strength) 500 mg PO Q4H PRN PRN Reason: Pain Last Admin: 08/17/16 22:50 Dose: 500 mg Acetaminophen (Tylenol Extra Strength) 1,000 mg PO Q4H PRN PRN Reason: Pain Al Hydroxide/Mg Hydroxide (Mag-Al Plus) 30 ml PO Q8H PRN PRN Reason: Heartburn Benzocaine/Menthol (Dermoplast Pain Relief 20%-0.5% [place]) 78 gm TOP ASDIRECTED PRN PRN Reason: Perineal Comfort Measure Last Admin: 08/17/16 06:24 Dose: 1 spray Bisacodyl (Dulcolax) 10 mg RECTAL .ONCE PRN PRN Reason: Constipation Calcium Gluconate (Calcium Gluconate) 1 gm IV ASDIRECTED PRN PRN Reason: respiratory distress Carboprost Tromethamine (Hemabate Ds) 250 mcg IM ASDIRECTED PRN PRN Reason: Post Hemorrhage Docusate Sodium (Colace) 100 mg PO BID PRN PRN Reason: Constipation Last Admin: 08/18/16 08:10 Dose: 100 mg Emollient Ointment (Lansinoh Hpa) 0 gm TOP ASDIRECTED PRN PRN Reason: Sore Nipples Oxytocin/Lactated Ringer's (Pitocin In Lr 30 Units/500 Ml) 30 unit in 500 mls @ 2 mls/hr IV TITRATE ALBA; 2 MUNITS/MIN PRN Reason: Protocol Last Titration: 08/17/16 02:23 Dose: 500 munits/min, 500 mls/hr Ampicillin Sodium/Sulbactam (Sodium 1.5 gm/ Sodium Chloride) 50 mls @ 150 mls/ hr IV Q6H [facility] Last Admin: 08/18/16 04:39 Dose: Not Given Lactated Ringer's (Ringers, Lactated) 1,000 mls @ 10 mls/hr IV ASDIRECTED ALBA Last Admin: 08/17/16 15:53 Dose: 10 mls/hr Ibuprofen (Motrin) 400 mg PO Q4H PRN PRN Reason: Pain Ibuprofen (Motrin) 800 mg PO Q6H PRN PRN Reason: Pain Last Admin: 08/17/16 20:05 Dose: 800 mg Labetalol HCl (Normodyne) 20 mg IVPUSH Q10M PRN; Protocol PRN Reason: Hypertension Methylergonovine Maleate (Methergine) 0.2 mg IM ASDIRECTED PRN PRN Reason: Post Hemorrhage Ondansetron HCl (Zofran) 4 mg IVPUSH Q6H PRN PRN Reason: Nausea/Vomiting Oxycodone HCl (Oxycodone) 5 mg PO Q2H PRN PRN Reason: Pain Last Admin: 08/17/16 22:50 Dose: 5 mg Simethicone (Simethicone) 80 mg PO Q4H PRN PRN Reason: Gas Sodium Chloride (Saline Flush) 10 ml FLUSH ASDIRECTED PRN PRN Reason: Keep Vein Open Sodium Chloride (Saline Flush) 2.5 ml FLUSH ASDIRECTED PRN PRN Reason: Keep Vein Open Witch Mony (Tucks) 1 pad TOP ASDIRECTED PRN PRN Reason: comfort care Discontinued Medications Acetaminophen (Tylenol) 650 mg PO NOW ONE Stop: 08/16/16 05:38 Last Admin: 08/16/16 06:10 Dose: 650 mg Butorphanol Tartrate (Stadol) 1 mg IVPUSH ASDIRECTED PRN PRN Reason: Pain Last Admin: 08/16/16 15:30 Dose: 1 mg Fentanyl (Sublimaze) Confirm Administered Dose 100 mcg .ROUTE .STK-MED ONE Stop: 08/16/16 18:51 Last Admin: 08/17/16 20:48 Dose: Not Given Lactated Ringer's (Ringers, Lactated) 1,000 mls @ 150 mls/hr IV ASDIRECTED ALBA Oxytocin/Lactated Ringer's (Pitocin In Lr 30 Units/500 Ml) 30 unit in 500 mls @ 250 mls/hr IV TITRATE ALBA; 250 MUNITS/MIN PRN Reason: Protocol Stop: 08/15/16 19:14 Magnesium Sulfate 4 gm/ Premix 100 mls @ 300 mls/hr IV .BOLUS ONE Stop: 08/15/16 18:41 Last Admin: 08/15/16 19:46 Dose: 300 mls/hr Magnesium Sulfate (Magnesium Sulfate 40 Gm In Water 1000 Ml) 40 gm in 1,000 mls @ 25 mls/hr IV ASDIRECTED ALBA; 1 GM/HR PRN Reason: Protocol Stop: 08/17/16 23:59 Last Titration: 08/17/16 02:30 Dose: 1 gm/hr, 25 mls/hr Ampicillin Sodium/Sulbactam (Sodium 1.5 gm/ Sodium Chloride) 50 mls @ 200 mls/ hr IV Q6H ALBA Ampicillin Sodium/Sulbactam (Sodium 3 gm/ Sodium Chloride) 100 mls @ 200 mls/ hr IV ONETIME ONE Stop: 08/16/16 15:59 Ampicillin Sodium/Sulbactam (Sodium 3 gm/ Sodium Chloride) 100 mls @ 200 mls/ hr IV ONETIME ONE Stop: 08/16/16 16:14 Last Admin: 08/16/16 16:34 Dose: 200 mls/hr Ropivacaine/Fentanyl/NS (Fentanyl 2 Mcg-Ropiv 0.2%-Ns) Confirm Administered Dose 100 mls @ as directed .ROUTE .STK-MED ONE Stop: 08/16/16 18:51 Last Admin: 08/17/16 20:48 Dose: Not Given Lactated Ringer's (Ringers, Lactated) 1,000 mls @ 999 mls/hr IV .BOLUS ONE Stop: 08/16/16 20:43 Last Admin: 08/17/16 20:48 Dose: Not Given Lidocaine HCl (Xylocaine 1%) 50 ml INJECT .ONCE PRN PRN Reason: Laceration repair Misoprostol (Cytotec) 200 mcg PO .ONCE PRN PRN Reason: Post Hemorrhage Misoprostol (Cytotec) 25 mcg VAG .ONCE ALBA Last Admin: 08/15/16 20:24 Dose: 25 mcg Misoprostol (Cytotec) 25 mcg VAG Q4H PRN PRN Reason: Cervical Ripening Stop: 08/16/16 22:31 Last Admin: 08/16/16 04:51 Dose: 25 mcg Nalbuphine HCl (Nubain) 10 mg IVPUSH ASDIRECTED PRN PRN Reason: Pain (severe 7-10) Stop: 08/17/16 17:05 Oxycodone HCl (Oxycodone) 5 mg PO ONETIME ONE Stop: 08/16/16 17:51 Last Admin: 08/16/16 17:54 Dose: 5 mg Ropivacaine (Naropin 0.2%) Confirm Administered Dose 20 ml .ROUTE .STK-MED ONE Stop: 08/16/16 18:52 Last Admin: 08/17/16 20:48 Dose: Not Given Sterile Water (Sterile Water For Irrigation) 1,000 ml IRR ASDIRECTED PRN PRN Reason: delivery Terbutaline Sulfate (Brethine) 0.25 mg SUBCUT ASDIRECTED PRN PRN Reason: Tacysystole - Infant Interaction Disposition, : [place] in Room with Family Interaction: Holding Feeding: Breastfed Infant; Nursed Well Support Person: - Recovery Exam Fundal Tone: Firm Fundal Level: 1 Fingerbreadths Below Umbilicus Fundal Placement: Midline Lochia Amount: Scant Lochia Color: Rubra/Red Perineum Description: Intact, Minimal Bruising/Swelling Other Perinuem Description: 2nd degree episiotomy with repair Episiotomy/Laceration: Approximated Bladder Status: Voiding Urinary Elimination: Voided - Exam General: alert, oriented Lungs: Normal respiratory effort Cardiovascular: Regular Rate, Regular Rhythm Abdomen: bowel sounds present, soft. No: CVA tenderness Extremities: no calf tenderness Skin: warm, dry, intact Psy/Mental Status: alert, normal affect - Problem List & Annotations (1) Vaginal delivery SNOMED Code(s): 002081823 Code(s): O80 - ENCOUNTER FOR FULL-TERM UNCOMPLICATED DELIVERY Status: Acute Current Visit: Yes (2) Preeclampsia SNOMED Code(s): 075283021 Code(s): O14.90 - UNSPECIFIED PRE-ECLAMPSIA, UNSPECIFIED TRIMESTER Status: Acute Current Visit: Yes - Problem List Review Problem List Initiated/Reviewed/Updated: Yes - Assessment Assessment:: PPD 1 status post /2nd MLE repaired Preeclampsia - Plan Plan:: Patient is doing well overall--blood pressures are stable and normalized overall. Diuresing well. Denies headache or visual changes. She would very much like to go home later today. Will monitor her today and re evaluate in afternoon. She has good support at home.
[2016-08-18] MEDS: Ibuprofen 800 MG Tab PO PRN (16:00)
[2016-08-19] MEDS: Ibuprofen 800 MG Tab PO PRN (04:51)
--- NOTE | 2016-08-19 06:32 | PCM.PNPP ---
- General Info Date of Service: 08/19/16 Functional Status: Reports: pain controlled, tolerating diet, ambulating, urinating - Review of Systems General: Denies: Fever, Weakness Pulmonary: Denies: shortness of breath Cardiovascular: Denies: Chest Pain, Palpitations, Lightheadedness Gastrointestinal: Denies: Nausea, Vomiting Genitourinary: Denies: flank pain Psychiatric: Reports: no symptoms - General Info Date of Service: 08/19/16 - Patient Data Vital Signs - most recent: Last Vital Signs Temp 36.3 C 08/18/16 20:00 Pulse 84 08/18/16 20:00 Resp 14 08/18/16 20:00 BP 133/78 08/18/16 20:00 Pulse Ox 96 08/18/16 20:00 Weight - most recent: 80.031 kg I&O - last 24 hours: Intake & Output 08/18/16 08/18/16 08/19/16 14:59 22:59 06:59 Output Total 2400 Balance -2400 Med Orders - Current: Current Medications Acetaminophen (Tylenol Extra Strength) 1,000 mg PO Q4H PRN PRN Reason: Pain Last Admin: 08/18/16 20:19 Dose: 1,000 mg Acetaminophen (Tylenol Extra Strength) 500 mg PO Q4H PRN PRN Reason: Pain Last Admin: 08/17/16 22:50 Dose: 500 mg Acetaminophen (Tylenol Extra Strength) 1,000 mg PO Q4H PRN PRN Reason: Pain Al Hydroxide/Mg Hydroxide (Mag-Al Plus) 30 ml PO Q8H PRN PRN Reason: Heartburn Benzocaine/Menthol (Dermoplast Pain Relief 20%-0.5% [place]) 78 gm TOP ASDIRECTED PRN PRN Reason: Perineal Comfort Measure Last Admin: 08/17/16 06:24 Dose: 1 spray Bisacodyl (Dulcolax) 10 mg RECTAL .ONCE PRN PRN Reason: Constipation Calcium Gluconate (Calcium Gluconate) 1 gm IV ASDIRECTED PRN PRN Reason: respiratory distress Carboprost Tromethamine (Hemabate Ds) 250 mcg IM ASDIRECTED PRN PRN Reason: Post Hemorrhage Docusate Sodium (Colace) 100 mg PO BID PRN PRN Reason: Constipation Last Admin: 08/18/16 08:10 Dose: 100 mg Emollient Ointment (Lansinoh Hpa) 0 gm TOP ASDIRECTED PRN PRN Reason: Sore Nipples Oxytocin/Lactated Ringer's (Pitocin In Lr 30 Units/500 Ml) 30 unit in 500 mls @ 2 mls/hr IV TITRATE ALBA; 2 MUNITS/MIN PRN Reason: Protocol Last Titration: 08/17/16 02:23 Dose: 500 munits/min, 500 mls/hr Lactated Ringer's (Ringers, Lactated) 1,000 mls @ 10 mls/hr IV ASDIRECTED ALBA Last Admin: 08/17/16 15:53 Dose: 10 mls/hr Ibuprofen (Motrin) 400 mg PO Q4H PRN PRN Reason: Pain Ibuprofen (Motrin) 800 mg PO Q6H PRN PRN Reason: Pain Last Admin: 08/19/16 04:51 Dose: 800 mg Labetalol HCl (Normodyne) 20 mg IVPUSH Q10M PRN; Protocol PRN Reason: Hypertension Methylergonovine Maleate (Methergine) 0.2 mg IM ASDIRECTED PRN PRN Reason: Post Hemorrhage Ondansetron HCl (Zofran) 4 mg IVPUSH Q6H PRN PRN Reason: Nausea/Vomiting Oxycodone HCl (Oxycodone) 5 mg PO Q2H PRN PRN Reason: Pain Last Admin: 08/17/16 22:50 Dose: 5 mg Simethicone (Simethicone) 80 mg PO Q4H PRN PRN Reason: Gas Sodium Chloride (Saline Flush) 10 ml FLUSH ASDIRECTED PRN PRN Reason: Keep Vein Open Sodium Chloride (Saline Flush) 2.5 ml FLUSH ASDIRECTED PRN PRN Reason: Keep Vein Open Witch Mony (Tucks) 1 pad TOP ASDIRECTED PRN PRN Reason: comfort care Discontinued Medications Acetaminophen (Tylenol) 650 mg PO NOW ONE Stop: 08/16/16 05:38 Last Admin: 08/16/16 06:10 Dose: 650 mg Butorphanol Tartrate (Stadol) 1 mg IVPUSH ASDIRECTED PRN PRN Reason: Pain Last Admin: 08/16/16 15:30 Dose: 1 mg Fentanyl (Sublimaze) Confirm Administered Dose 100 mcg .ROUTE .STK-MED ONE Stop: 08/16/16 18:51 Last Admin: 08/17/16 20:48 Dose: Not Given Lactated Ringer's (Ringers, Lactated) 1,000 mls @ 150 mls/hr IV ASDIRECTED ALBA Oxytocin/Lactated Ringer's (Pitocin In Lr 30 Units/500 Ml) 30 unit in 500 mls @ 250 mls/hr IV TITRATE ALBA; 250 MUNITS/MIN PRN Reason: Protocol Stop: 08/15/16 19:14 Magnesium Sulfate 4 gm/ Premix 100 mls @ 300 mls/hr IV .BOLUS ONE Stop: 08/15/16 18:41 Last Admin: 08/15/16 19:46 Dose: 300 mls/hr Magnesium Sulfate (Magnesium Sulfate 40 Gm In Water 1000 Ml) 40 gm in 1,000 mls @ 25 mls/hr IV ASDIRECTED ALBA; 1 GM/HR PRN Reason: Protocol Stop: 08/17/16 23:59 Last Titration: 08/17/16 02:30 Dose: 1 gm/hr, 25 mls/hr Ampicillin Sodium/Sulbactam (Sodium 1.5 gm/ Sodium Chloride) 50 mls @ 200 mls/ hr IV Q6H ALBA Ampicillin Sodium/Sulbactam (Sodium 3 gm/ Sodium Chloride) 100 mls @ 200 mls/ hr IV ONETIME ONE Stop: 08/16/16 15:59 Ampicillin Sodium/Sulbactam (Sodium 3 gm/ Sodium Chloride) 100 mls @ 200 mls/ hr IV ONETIME ONE Stop: 08/16/16 16:14 Last Admin: 08/16/16 16:34 Dose: 200 mls/hr Ampicillin Sodium/Sulbactam (Sodium 1.5 gm/ Sodium Chloride) 50 mls @ 150 mls/ hr IV Q6H ALBA Last Admin: 08/18/16 22:09 Dose: Not Given Ropivacaine/Fentanyl/NS (Fentanyl 2 Mcg-Ropiv 0.2%-Ns) Confirm Administered Dose 100 mls @ as directed .ROUTE .STK-MED ONE Stop: 08/16/16 18:51 Last Admin: 08/17/16 20:48 Dose: Not Given Lactated Ringer's (Ringers, Lactated) 1,000 mls @ 999 mls/hr IV .BOLUS ONE Stop: 08/16/16 20:43 Last Admin: 08/17/16 20:48 Dose: Not Given Lidocaine HCl (Xylocaine 1%) 50 ml INJECT .ONCE PRN PRN Reason: Laceration repair Misoprostol (Cytotec) 200 mcg PO .ONCE PRN PRN Reason: Post Hemorrhage Misoprostol (Cytotec) 25 mcg VAG .ONCE ALBA Last Admin: 08/15/16 20:24 Dose: 25 mcg Misoprostol (Cytotec) 25 mcg VAG Q4H PRN PRN Reason: Cervical Ripening Stop: 08/16/16 22:31 Last Admin: 08/16/16 04:51 Dose: 25 mcg Nalbuphine HCl (Nubain) 10 mg IVPUSH ASDIRECTED PRN PRN Reason: Pain (severe 7-10) Stop: 08/17/16 17:05 Oxycodone HCl (Oxycodone) 5 mg PO ONETIME ONE Stop: 08/16/16 17:51 Last Admin: 08/16/16 17:54 Dose: 5 mg Ropivacaine (Naropin 0.2%) Confirm Administered Dose 20 ml .ROUTE .STK-MED ONE Stop: 08/16/16 18:52 Last Admin: 08/17/16 20:48 Dose: Not Given Sterile Water (Sterile Water For Irrigation) 1,000 ml IRR ASDIRECTED PRN PRN Reason: delivery Terbutaline Sulfate (Brethine) 0.25 mg SUBCUT ASDIRECTED PRN PRN Reason: Tacysystole - Interaction Infant Disposition, : Carmen in Room with Family Interaction: Holding Infant Feeding: Breastfed ; Nursed Well Support Person: - Recovery Exam Fundal Tone: Firm Fundal Level: 2 Fingerbreadths Below Umbilicus Fundal Placement: Midline Lochia Amount: Scant Lochia Color: Rubra/Red Perineum Description: Intact, Minimal Bruising/Swelling Other Perinuem Description: 2nd degree episiotomy with repair Episiotomy/Laceration: Approximated Bladder Status: Nonpalpable, Voiding Urinary Elimination: Voided - Exam General: alert, oriented Lungs: Normal respiratory effort Cardiovascular: Regular Rate, Regular Rhythm Abdomen: bowel sounds present, soft. No: CVA tenderness Extremities: no calf tenderness, edema (Trace pedal edema) Skin: warm, dry, intact Psy/Mental Status: alert, normal affect - Problem List & Annotations (1) Vaginal delivery SNOMED Code(s): 211213750 Code(s): O80 - ENCOUNTER FOR FULL-TERM UNCOMPLICATED DELIVERY Status: Acute Current Visit: Yes (2) Preeclampsia SNOMED Code(s): 734252477 Code(s): O14.90 - UNSPECIFIED PRE-ECLAMPSIA, UNSPECIFIED TRIMESTER Status: Acute Current Visit: Yes - Problem List Review Problem List Initiated/Reviewed/Updated: Yes - Assessment Assessment:: PPD 2 status post /2nd MLE repaired Preeclampsia - Plan Plan:: Patient is doing well overall, BPs remain stable. Continues to have very good urine output/diuresis. She would like to go home today. Discharge instructions revewed. Follow up at [facility] in one week for BP check and 6 weeks for PP. Infection and bleeding warnings reviewed.
[2016-08-19 09:08] VITALS: BP 132/84
== END 2016-08-19 12:37 | disposition home or self-care (01) | DRG 560 ==
LOC: MW.OBCHECK 13:01 → MW.OB 13:07 → MW.OBCHECK 16:41 → MW.OB 16:41 → OBSVTOIN 08-17 02:21 → MW.OB 08-17 08:30
PROVIDERS: ADMIT Obstetrics & Gynecology; ATTEND Obstetrics & Gynecology
PROC: 10E0XZZ Delivery of Products of Conception, External Approach (ICD-10-PCS; principal; 2016-08-17)
PROC: 0KQM0ZZ Repair Perineum Muscle, Open Approach (ICD-10-PCS; 2016-08-17)
DX: O14.94 Unspecified pre-eclampsia, complicating childbirth (principal); O42.02 Full-term premature rupture of membranes, onset of labor within 24 hours of rupture; Z3A.40 40 weeks gestation of pregnancy; Z37.0 Single live birth
CPT/HCPCS: 01967; 36415; 59025; 76815; 76815-26; 80053; 81003; 83735; 84112; 84550; 85025; 85027; 86850; 86900; 86901; A9270-GY; J0287; J0295; J0595; J3475; J7030; J7050; J7120